=== PATIENT | female | born 1985 | race Two or more races ===

== ENCOUNTER 2017-04-20 15:58 | Emergency (ER) | payer MEDICAID ==
[~2017-04-20] VITALS: Ht 160 cm; Wt 79.4 kg
[2017-04-20 16:27] VITALS: BP 126/83
== END 2017-04-20 17:31 | disposition home or self-care (01) ==
LOC: ER 16:04
DX: J01.10 Acute frontal sinusitis, unspecified (principal); Z90.49 Acquired absence of other specified parts of digestive tract